=== PATIENT | female | born 1950 | race Hispanic/Latino ===

== ENCOUNTER 2018-06-17 08:17 | Day surgery (SDC) | payer MEDICARE ==
[~2018-06-17] VITALS: Ht 152.4 cm; Wt 73.9 kg
[~2018-06-17 08:17] MED LIST: SODIUM CHLORIDE 0.9% 1000ML 1,000 ML IV ONE
[2018-06-17 08:53] VITALS: BP 142/63
[2018-06-17] MEDS ORDERED: ASPI-555 PO (09:33)
[2018-06-17] MEDS ORDERED: CYAN10007 IJ (09:33)
[2018-06-17] MEDS ORDERED: LEVO100T12 PO (09:33)
[2018-06-17] MEDS ORDERED: CLOP75TA32 PO (09:33)
[2018-06-17] MEDS ORDERED: CHOL200013 PO (09:33)
[2018-06-17] MEDS ORDERED: ATOR40TA71 PO (09:33)
[2018-06-17] MEDS ORDERED: LISI1TAB11 PO (09:33)
[2018-06-17] MEDS ORDERED: PROPOFOL 10 MG/ML 20ML VIAL IV ONE (10:50)
[2018-06-17 11:08] VITALS: BP 94/46
[2018-06-17 11:14] VITALS: BP 112/50
[2018-06-17 11:20] VITALS: BP 113/46
== END 2018-06-17 11:40 | disposition home or self-care (01) ==
LOC: DAH 08:17
PROVIDERS: ATTEND Internal Medicine
DX: K44.9 Diaphragmatic hernia without obstruction or gangrene (principal); K31.89 Other diseases of stomach and duodenum; I10 Essential (primary) hypertension; D64.9 Anemia, unspecified; E78.5 Hyperlipidemia, unspecified; E03.9 Hypothyroidism, unspecified; Z95.5 Presence of coronary angioplasty implant and graft; Z79.899 Other long term (current) drug therapy; Z68.34 Body mass index [BMI] 34.0-34.9, adult; I25.10 Atherosclerotic heart disease of native coronary artery without angina pectoris; K76.0 Fatty (change of) liver, not elsewhere classified; K29.50 Unspecified chronic gastritis without bleeding
CPT/HCPCS: 43237; 43239; 88305; 88312; 88342; 93005; A4606; J2704; J7030; 43231